=== PATIENT | female | born 1955 | race African-American/Black ===

== ENCOUNTER 2018-11-08 11:00 | Outpatient (RCR) | payer MEDICARE ==
[~2018-11-08 11:00] MED LIST: ANTIVERT25 MG PO; CHLORTHALID25 MG PO; CIPROFLOXACN500 MG PO; HYDROCHLOROT12.5 MG PO; LISINOPRIL5 MG PO; LOPRESSOR50 M1 PO; LOSARTAN POT25 MG PO; LOSARTAN POT50 MG PO; LOTRISONE CREAM15 G1 EX; METFORMIN500 MG PO; METHYLDOPA500 MG OR; METO25TAB PO; METOPROL TAR25 MG PO; METOPROLOL25 MG PO; NORVASC5 MG PO; PRAVASTATIN SOD10 MG PO; PYRIDIUM200 MG PO; TRIAMCINOLON0.11 EX; [UNRECOGNIZED DRUG - OTHER]
== END 2018-11-13 08:35 | disposition home or self-care (01) ==
LOC: PT 11:00
PROVIDERS: ATTEND Orthopaedic Surgery
DX: Z47.89 Encounter for other orthopedic aftercare (principal); Z98.890 Other specified postprocedural states; R53.1 Weakness; R26.2 Difficulty in walking, not elsewhere classified

== ENCOUNTER 2019-01-03 11:38 | Emergency (ER) | payer MEDICARE ==
[~2019-01-03] VITALS: Ht 175.3 cm; Wt 118.0 kg
[2019-01-03 12:05] LABS: GFR 50 ML/MIN (>=60 (CALC)); GFR FOR AFR.AMER. > 60 ML/MIN (>=60 (CALC))
[2019-01-03 12:09] LABS: HEMATOCRIT 45.5 % (37.0-47.0); HEMOGLOBIN 14.7 g/dl (12.0-16.0); IMMATURE GRANULOCYTES 0.7 % (0.0-5.0); MEAN CELL VOLUME 97.6 fL CALC (80.0-100.0); MEAN CORPUSCULAR HGB 31.5 pG CALC (26.0-32.0); MEAN CORPUSCULAR HGB CONC 32.3 g/L CALC (32.0-36.0); NEUT# 6.69 thou/uL (2.00-7.15); RED BLOOD COUNT 4.66 mill/uL (4.20-5.60); RED CELL DISTRI WIDTH 14.9 % (11.5-15.5)
[2019-01-03 12:25] LABS: INTERNATIONAL NORMALIZED RATIO 0.9 RATIO (0.7-1.3); PROTHROMBIN TIME 9.8 SECONDS (9.0-12.5)
[2019-01-03 12:38] LABS: ANION GAP 12 (6-22 (CALC)); BUN 16 mg/dL (8-23); BUN/CREATININE RATIO 16 (12-20 (CALC)); CARBON DIOXIDE 25 mmol/l (22-30); CHLORIDE 107 mmol/l (95-108); GFR 56 ML/MIN (>=60 (CALC)); GFR FOR AFR.AMER. > 60 ML/MIN (>=60 (CALC)); POTASSIUM 3.8 mmol/l (3.5-5.1); SODIUM 141 mmol/l (137-146)
[2019-01-03] MEDS ORDERED: HYDRALAZINE25 MG PO (12:46)
[2019-01-03 13:55] VITALS: BP 138/58
== END 2019-01-03 13:55 | disposition short-term general hospital (02) ==
LOC: ED 11:38
PROVIDERS: Family Medicine
DX: I63.9 Cerebral infarction, unspecified (principal); I10 Essential (primary) hypertension; R29.701 NIHSS score 1; R20.0 Anesthesia of skin; R53.1 Weakness
CPT/HCPCS: Q9967

== ENCOUNTER 2023-05-03 20:32 | Observation (INO) | payer MEDICARE ==
[~2023-05-03] VITALS: Ht 177.8 cm; Wt 122.0 kg
[~2023-05-03 20:32] MED LIST changes: +HYDRALAZINE25 MG PO
[2023-05-03] MEDS ORDERED: LOSARTAN POTASS50 MG PO (20:58)
[2023-05-03] MEDS ORDERED: NEURONTIN400 MG PO (20:59)
[2023-05-03] MEDS ORDERED: PERCOCET 5/321 COMBO PO (21:00)
[2023-05-03 21:45] LABS: BASO% 0.2 % (0-3); EOS% 0.7 % (0-8); IMMATURE GRANULOCYTES 0.4 % (0.0-5.0); LYMPH% 8.4 % (15-41); MEAN CELL VOLUME 99.7 fL CALC (80.0-100.0); MEAN CORPUSCULAR HGB 32.2 pG CALC (26.0-32.0); MEAN CORPUSCULAR HGB CONC 32.3 g/dL CAL (32.0-36.0); MONO% 8.1 % (2-13); NEUT# 10.7 thou/uL (2.00-7.15); NEUT% 82.2 % (42-76); RED BLOOD COUNT 3.88 mill/uL (4.20-5.60)
[2023-05-03 21:46] LABS: HEMATOCRIT 38.7 % (37.0-47.0); HEMOGLOBIN 12.5 g/dl (12.0-16.0)
[2023-05-03 21:56] LABS: ALBUMIN 3.7 g/dL (3.2-5.0); ALKALINE PHOSPHATASE 121 u/l (38-126); ANION GAP 8 (6-22 (CALC)); BILIRUBIN, TOTAL 0.7 mg/dL (0.02-1.3); BUN 24 mg/dL (8-23); BUN/CREATININE RATIO 22 (12-20 (CALC)); CARBON DIOXIDE 25 mmol/l (22-30); CHLORIDE 108 mmol/l (95-108); CREATININE 1.1 mg/dL (0.5-1.0); GFR FOR AFR.AMER. 60 ML/MIN (>=60 (CALC)); GFR OTHER RACES 50 ML/MIN (>=60 (CALC)); POTASSIUM 3.9 mmol/l (3.5-5.1); SGOT/AST 26 u/l (9-36); SODIUM 137 mmol/l (137-146); TOTAL PROTEIN 6.8 g/dL (6.3-8.2)
[2023-05-03 22:00] LABS: URINE BLOOD DIPSTICK Negative (NEGATIVE); URINE COLOR Yellow; URINE GLUCOSE - DIPSTICK Negative (NEGATIVE); URINE KETONE Trace mg/dL (NEGATIVE); URINE LEUK ESTERASE Negative (NEGATIVE); URINE NITRITE - DIPSTICK Negative (Negative); URINE PROTEIN - DIPSTICK 30 mg/dL (NEG-TRACE); URINE SPECIFIC GRAVITY 1.025; URINE UROBILINOGEN - DIPSTICK 0.2 E.U./dL (0.2)
[2023-05-03 22:01] LABS: URINE RBC 0-2 RBC/hpf (0-5); URINE SQUAMOUS EPITHELIAL CELL FEW EPI/hpf (0-FEW); URINE WBC 0-2 WBC/hpf (0-5)
[2023-05-04] VITALS (7 sets, daily range): BP systolic 111–140; BP diastolic 36–67
[2023-05-04 10:57] LABS: BASO% 0.1 % (0-3); EOS% 0.3 % (0-8); HEMATOCRIT 34.9 % (37.0-47.0); HEMOGLOBIN 11.5 g/dl (12.0-16.0); IMMATURE GRANULOCYTES 0.3 % (0.0-5.0); LYMPH% 8.8 % (15-41); MEAN CELL VOLUME 98.9 fL CALC (80.0-100.0); MEAN CORPUSCULAR HGB 32.6 pG CALC (26.0-32.0); MONO% 9.9 % (2-13); NEUT# 11.02 thou/uL (2.00-7.15); NEUT% 80.6 % (42-76); RED BLOOD COUNT 3.53 mill/uL (4.20-5.60); RED CELL DISTRI WIDTH 14.8 % (11.5-15.5)
[2023-05-04 11:06] LABS: ALKALINE PHOSPHATASE 87 u/l (38-126); ANION GAP 8 (6-22 (CALC)); BILIRUBIN, TOTAL 0.8 mg/dL (0.02-1.3); BUN 18 mg/dL (8-23); BUN/CREATININE RATIO 18 (12-20 (CALC)); CARBON DIOXIDE 23 mmol/l (22-30); CHLORIDE 108 mmol/l (95-108); GFR FOR AFR.AMER. > 60 ML/MIN (>=60 (CALC)); GFR OTHER RACES 55 ML/MIN (>=60 (CALC)); POTASSIUM 3.7 mmol/l (3.5-5.1); SGOT/AST 20 u/l (9-36); SODIUM 135 mmol/l (137-146)
[2023-05-04 12:02] LABS: ALBUMIN 2.9 g/dL (3.2-5.0); TOTAL PROTEIN 5.3 g/dL (6.3-8.2)
[2023-05-05 04:18] VITALS: BP 108/45
[2023-05-05 05:13] LABS: BASO% 0.3 % (0-3); EOS% 1.8 % (0-8); HEMATOCRIT 34.2 % (37.0-47.0); HEMOGLOBIN 11.1 g/dl (12.0-16.0); IMMATURE GRANULOCYTES 0.1 % (0.0-5.0); LYMPH% 16.8 % (15-41); MEAN CELL VOLUME 99.4 fL CALC (80.0-100.0); MEAN CORPUSCULAR HGB 32.3 pG CALC (26.0-32.0); MEAN CORPUSCULAR HGB CONC 32.5 g/dL CAL (32.0-36.0); MONO% 9.8 % (2-13); NEUT# 7.28 thou/uL (2.00-7.15); NEUT% 71.2 % (42-76); RED BLOOD COUNT 3.44 mill/uL (4.20-5.60); RED CELL DISTRI WIDTH 14.8 % (11.5-15.5)
[2023-05-05 05:39] LABS: ALBUMIN 2.5 g/dL (3.2-5.0); ALKALINE PHOSPHATASE 81 u/l (38-126); ANION GAP 7 (6-22 (CALC)); BILIRUBIN, TOTAL 0.5 mg/dL (0.02-1.3); BUN 10 mg/dL (8-23); BUN/CREATININE RATIO 12 (12-20 (CALC)); CARBON DIOXIDE 23 mmol/l (22-30); CHLORIDE 111 mmol/l (95-108); CREATININE 0.9 mg/dL (0.5-1.0); GFR FOR AFR.AMER. > 60 ML/MIN (>=60 (CALC)); GFR OTHER RACES > 60 ML/MIN (>=60 (CALC)); MAGNESIUM 2.1 mg/dL (1.6-2.3); POTASSIUM 3.5 mmol/l (3.5-5.1); SGOT/AST 23 u/l (9-36); SODIUM 138 mmol/l (137-146); TOTAL PROTEIN 4.9 g/dL (6.3-8.2)
[2023-05-05 07:00] VITALS: BP 115/52
[2023-05-05 11:10] VITALS: BP 129/55
[2023-05-05 14:00] VITALS: BP 122/60
[2023-05-05 19:53] VITALS: BP 140/58
[2023-05-05 23:50] VITALS: BP 142/66
[2023-05-06 04:31] VITALS: BP 138/63
[2023-05-06 06:52] LABS: BASO% 0.5 % (0-3); EOS% 3.2 % (0-8); HEMATOCRIT 38.1 % (37.0-47.0); HEMOGLOBIN 12.3 g/dl (12.0-16.0); IMMATURE GRANULOCYTES 0.1 % (0.0-5.0); LYMPH% 19.1 % (15-41); MEAN CELL VOLUME 98.2 fL CALC (80.0-100.0); MEAN CORPUSCULAR HGB 31.7 pG CALC (26.0-32.0); MEAN CORPUSCULAR HGB CONC 32.3 g/dL CAL (32.0-36.0); MONO% 8.4 % (2-13); NEUT# 5.13 thou/uL (2.00-7.15); NEUT% 68.7 % (42-76); RED BLOOD COUNT 3.88 mill/uL (4.20-5.60); RED CELL DISTRI WIDTH 14.6 % (11.5-15.5)
[2023-05-06 07:18] LABS: ALKALINE PHOSPHATASE 105 u/l (38-126); ANION GAP 6 (6-22 (CALC)); BILIRUBIN, TOTAL 0.6 mg/dL (0.02-1.3); BUN 6 mg/dL (8-23); BUN/CREATININE RATIO 7 (12-20 (CALC)); CARBON DIOXIDE 25 mmol/l (22-30); CHLORIDE 111 mmol/l (95-108); CREATININE 0.9 mg/dL (0.5-1.0); GFR FOR AFR.AMER. > 60 ML/MIN (>=60 (CALC)); GFR OTHER RACES > 60 ML/MIN (>=60 (CALC)); POTASSIUM 3.4 mmol/l (3.5-5.1); SGOT/AST 33 u/l (9-36); SODIUM 140 mmol/l (137-146)
[2023-05-06 07:26] VITALS: BP 126/45
[2023-05-06 10:56] VITALS: BP 129/52
[2023-05-06] MEDS ORDERED: (None)125 MG PO ×2 (12:19→14:53)
== END 2023-05-06 14:47 ==
LOC: ED 20:32 → ED-I 21:20 → ED 05-04 01:06 → MS2 05-04 01:07
PROVIDERS: Emergency Medicine; Nurse Practitioner Family; ADMIT Student in an Organized Health Care Education/Training Program; ATTEND Student in an Organized Health Care Education/Training Program
DX: A04.72 Enterocolitis due to Clostridium difficile, not specified as recurrent (principal); I10 Essential (primary) hypertension; M54.12 Radiculopathy, cervical region; Z60.2 Problems related to living alone; Z98.890 Other specified postprocedural states; Z79.891 Long term (current) use of opiate analgesic; Z20.822 Contact with and (suspected) exposure to COVID-19